=== PATIENT | female | born 1945 | race Caucasian/White ===

== ENCOUNTER 2016-12-19 10:13 | Outpatient (CLI) | payer OTHER ==
[2015-10-21 14:16] VITALS: BP 150/91
[~2016-12-19 10:13] MED LIST: BUPIVACAINE HCL/PF 2.5 MG/ML 10ML VIAL IV ONE; Lidocaine 1% 5ml(IM or SUTURE)(PAIN CLINIC) ONE; TRIAMCINOLONE ACETONID 40MG/ML VIAL ONE
--- NOTE | 2016-12-21 13:09 | GREATER THROCHANTERIC BURSA IN ---
SUBJECTIVE: I had the opportunity of following up with Lianna Alfredo today as an outpatient at [facility]. This is a patient I treated for left-sided trochanteric bursitis in September and she had profound immediate relief and is overall better. She says that the symptoms are now returning on the left and she has also noted right-sided symptoms primarily in her hips. She is interested in discussing treatment options for bursitis other than a steroid injection and I did discuss PRP therapy bilateral hip bursa today and she was very receptive to the idea of PRP therapy for her bursitis. For today, I am going to plan on repeating bilateral greater trochanteric injections under fluoroscopy. PROCEDURE: Bilateral greater trochanteric bursa injection with fluoroscopic guidance. DESCRIPTION OF PROCEDURE: The risks and benefits of the procedure were discussed with the patient, including the risk of infection, bleeding, nerve injury. Furthermore, I discussed the risk of steroid exposure causing hyperglycemia, hypertension, osteoporosis, or increased infectious risks. The patient understood the risks and agreed to proceed. Consent was obtained. The patient was placed in prone position on the fluoroscopy table and the skin overlying the left greater trochanter of the femur was cleaned with an alcohol swab. The trochanter was visualized under AP fluoroscopy. A 25 gauge 1.5 needle was inserted over the trochanter and advanced until contact with the trochanter. It was verified that there was no aspiration of fluid or blood. Triamcinolone acetate and 0.25% of bupivacaine mixed with 1% lidocaine was injected. The needle was removed. The exact same procedure was then repeated on the contralateral greater trochanteric bursa. The patient was monitored for 20 minutes following the procedure, during which time the patient experienced no adverse sequelae. The patient was discharged to home in good condition with a milk tanker driver driving the patient home. ASSESSMENT: Bilateral greater trochanteric bursitis. PLAN: Bilateral greater trochanteric bursa injection with fluoroscopic guidance. FOLLOW UP: Return to clinic if problems develop or worsen. MARIE
== END 2016-12-19 10:23 ==
LOC: OUT 10:13
PROVIDERS: ATTEND Anesthesiology Pain Medicine
DX: M70.71 Other bursitis of hip, right hip (principal); M70.72 Other bursitis of hip, left hip
CPT/HCPCS: J3301; J3490; 20610; 77002; 99214; G0463

== ENCOUNTER 2017-08-07 09:58 | Outpatient (CLI) | payer OTHER ==
[2015-10-21 14:16] VITALS: BP 150/91
--- NOTE | 2017-08-08 09:58 | GREATER THROCHANTERIC BURSA IN ---
SUBJECTIVE: I had the opportunity of following up with Lianna Alfredo today as an outpatient at [facility]. Lianna is a very pleasant 71-year-old white female with bilateral hip pain. I have treated her with trochanteric bursa injections on December 19, 2016, and I had given her 1 previous injection for trochanteric bursitis last year and she has done quite well. I did describe PRP injections for chronic recurrent bursitis. I am going to plan today to repeat the bilateral trochanteric bursa injections under fluoroscopy. PROCEDURE: Bilateral greater trochanteric bursa injection with fluoroscopy. DESCRIPTION OF PROCEDURE: The risks and benefits of the procedure were discussed with the patient, including the risk of infection, bleeding, nerve injury. Furthermore, I discussed the risk of steroid exposure causing hyperglycemia, hypertension, osteoporosis, or increased infectious risks. The patient understood the risks and agreed to proceed. Consent was obtained. The patient was placed in prone position on the fluoroscopy table and the skin overlying the left greater trochanter of the femur was cleaned with an alcohol swab. The trochanter was visualized under AP fluoroscopy. A 23-gauge, 3.5 needle was inserted over the trochanter and advanced until contact with the trochanter. It was verified that there was no aspiration of fluid or blood. The medications were injected. The needle was removed. This exact same procedure was then repeated on the right greater trochanteric bursa. The patient was monitored for 20 minutes following the procedure, during which time the patient experienced no adverse sequelae. The patient was discharged to home in good condition with a flag car driver driving the patient home. ASSESSMENT: Bilateral trochanteric bursitis. PLAN: Bilateral greater trochanteric bursa injection today with fluoroscopy. FOLLOW UP: Return to clinic if problems develop or worsen. cc: Dr. Rivera SALAZAR
== END 2017-08-07 10:00 ==
LOC: OUT 09:58
PROVIDERS: ATTEND Anesthesiology Pain Medicine
DX: M70.62 Trochanteric bursitis, left hip (principal); M70.61 Trochanteric bursitis, right hip
CPT/HCPCS: J3301; J3490; 20611; 99213; G0463

== ENCOUNTER 2017-10-14 14:47 | Emergency (ER) | payer OTHER ==
--- NOTE | 2017-10-14 15:57 | ED Physician Documentation ---
Fall - HISTORIAN Historian: patient, spouse - HPI Chief Complaint: Fall Additional Information: fell 09-27- then 3 times since- frequently involving pet dog. involves lt hip knee andklwrist w/large bruise spreading from hip distalward Where: home Context: tripped, slipped, lost balance r: moderate Associated Symptoms:: no loss of consciousness Location of Pain/Injury: denies: head, neck, face Injury to Right Extremity: denies: none Injury to Left Extremity: wrist, knee (pt is chronic pain pt takes hydrocodone) - ROS CONST: no problems NEURO: anxiety. denies: dizziness, depression MS/SKIN/LYMPH: denies: weakness, numbness, neck pain, back pain EYES/ENT: denies: none CVS/RESP: denies: none GI/: denies: problems urinating, nausea, vomiting - PAST HX Past History: other (depression anxiety gerd) Allergies/Adverse Reactions: Allergies Allergy/AdvReac Type Severity Reaction Status Date / Time lithium [[place]] Allergy Intermediate Hives Verified 10/14/17 16:28 amoxicillin trihydrate Allergy Verified 10/14/17 16:28 [From Augmentin] potassium clavulanate Allergy Verified 10/14/17 16:28 [From Augmentin] azithromycin [From Zithromax] AdvReac Nausea/Vomi Verified 10/14/17 16:28 ting Home Medications: Ambulatory Orders Medication Instructions Recorded Cholecalciferol (Vitamin D3) 2,000 unit PO DAILY av 03/23/16 [Vitamin D] - SOCIAL HX Smoking History: cigarettes Alcohol Use: rarely Drug Use: none - FAMILY HX Family History: no significant history - VITAL SIGNS Vital Signs: Vital Signs Temp Pulse Resp BP Pulse Ox 150/91 10/21/15 11:18 - REVIEWED ASSESSMENTS Nursing Assessment Reviewed: Yes Vitals Reviewed: Yes ED Results Lab/Radiology - Radiology Radiology Impressions: impacted fracture lt lwrist - knee hip appear ok - Orders Orders: ED Orders Category Date Time Status KNEE 3 VIEWS [RAD] Stat Exams 10/14/17 Ordered LT HIP 2VIEW COMPLETE [RAD] Stat Exams 10/14/17 Ordered WRIST 3 VIEWS OR MORE [RAD] Stat Exams 10/14/17 Ordered Fall Physical Exam - Physical Exam General Appearance: mild distress, moderate distress Head: non-tender, no swelling, no obvious injury Neck: non-tender, painless ROM Eye: KELSY, EOMI Resp/CVS: chest non-tender, no ecchymosis, breath sounds nml, no resp. distress , heart sounds nml Abdomen: soft, non-tender Neuro: oriented x3, sensation nml, motor nml, mood/affect nml. No: unsteady gait Skin: color nml, no rash, ecchymosis (lt hip area spreading down leg to knee-is not on blood thinners). No: cyanosis, diaphoresis, pallor Joint: No: nml ROM (limited knee and hip and wrist w/swelling-but can ambulate w /o asst) - [place] Coma Score Eyes Open: Spontaneous Speech: Oriented Motor: Obeys Commands Discharge Clincal Impression: fall w.impacted fracture lt wrist, multi abrasion contusion ligt sprain fr Referrals: Rivera Alfredo MD [Primary Care Provider] - 2 Days Comments: see ortho soon continue splint Condition: Good Disposition: 01 HOME, SELF-CARE Decision to Admit: NO Decision Time: 17:21
--- NOTE | 2017-10-14 17:35 | Diagnostic Imaging Report ---
JUWAN LEVI [facility] [address] [facility] [address] [address] Report Submission Date: Oct 14, 2017 4:48:13 PM MATERIAL MIXER Patient Study Name: JENSEN POTTER Date: Oct 14, 2017 4:12:02 PM MATERIAL MIXER Modality Type: CR Gender: F Description: LOWER EXTREMITY : 47 Institution: [facility] Physician: JUWAN LEVI Examination: Plain film knee History: Knee discomfort Findings: 3 views of the knee demonstrates osteopenia. No fracture. No dislocation. No joint effusion. Mild patellar spurring. No soft tissue irregularity. Impression: Osteopenia. No acute osseous abnormality. Electronically signed on Oct 14, 2017 4:48:13 PM MATERIAL MIXER by: Fredis SALAZAR
--- NOTE | 2017-10-14 17:36 | Diagnostic Imaging Report ---
JUWAN LEVI [facility] [address] [facility] [address] [address] Report Submission Date: Oct 14, 2017 4:37:12 PM TURF GROWER Patient Study Name: JENSEN POTTER Date: Oct 14, 2017 4:16:27 PM TURF GROWER Modality Type: CR Gender: F Description: PELVIS : 46 Institution: [facility] Physician: JUWAN LEVI Examination: Plain film hip History: Hip discomfort Comparison exams: None provided Findings: 3 views of the hip demonstrates prosthetic device in place. No fracture no dislocation. No soft tissue abnormality. Impression: Hip replacement in place without fracture or dislocation. Electronically signed on Oct 14, 2017 4:37:12 PM TURF GROWER by: Fredis SALAZAR
[2017-10-14 17:37] VITALS: BP 122/76
--- NOTE | 2017-10-14 17:37 | Diagnostic Imaging Report ---
JUWAN LEVI [facility] [address] [facility] [address] Report Submission Date: Oct 14, 2017 4:49:49 PM PUSH BENCH OPERATOR HELPER Patient Study Name: JENSEN POTTER Date: Oct 14, 2017 4:25:51 PM PUSH BENCH OPERATOR HELPER Modality Type: CR Gender: F Description: UPPER EXTREMITY : 46 Institution: [facility] Physician: JUWAN LEVI Examination: Plain film wrist History: Fall Comparison exams: None available Findings: 3 views the wrist demonstrates osteopenia. Articular degenerative changes. Fracture involving the distal radius. Avulsion of the ulna styloid. No gross soft tissue abnormalities. Impression: Distal radial fracture. Ulna styloid avulsion. Electronically signed on Oct 14, 2017 4:49:49 PM PUSH BENCH OPERATOR HELPER by: Fredis SALAZAR
== END 2017-10-14 17:30 | disposition home or self-care (01) ==
LOC: ED 14:47
DX: S62.102A Fracture of unspecified carpal bone, left wrist, initial encounter for closed fracture (principal); W19.XXXA Unspecified fall, initial encounter; Y93.9 Activity, unspecified; Y99.9 Unspecified external cause status
CPT/HCPCS: 73110; 73562; 99283

== ENCOUNTER 2017-12-25 16:13 | Outpatient (CLI) | payer OTHER ==
--- NOTE | 2017-12-25 17:50 | Diagnostic Imaging Report ---
[facility] [address] [facility].[address] [address] Report Submission Date: Dec 25, 2017 5:06:54 PM GUEST EXPERIENCE CAPTAIN Patient Study Name: JENSEN POTTER Date: Dec 25, 2017 4:26:16 PM GUEST EXPERIENCE CAPTAIN Modality Type: CR Gender: F Description: PELVIS : 46 Institution: [facility] Physician: NUNU POTTER Examination: Plain film hip History: Hip discomfort Comparison exams: None provided Findings: 2 views of the hip demonstrates a prosthetic device in place. No fracture no dislocation. No soft tissue abnormality. Impression: Prosthetic device. No acute appearing osseous abnormality. Electronically signed on Dec 25, 2017 5:06:54 PM GUEST EXPERIENCE CAPTAIN by: Fredis SALAZAR
== END 2017-12-25 16:14 ==
LOC: RAD 16:13
PROVIDERS: ATTEND Family Medicine
DX: M25.552 Pain in left hip (principal)

== ENCOUNTER 2018-02-23 07:09 | Emergency (ER) | payer OTHER ==
--- NOTE | 2018-02-23 08:38 | ED Physician Documentation ---
General Adult - HISTORIAN Historian: patient - HPI Stated Complaint: Pain to frontal hip (L) that started at 3am, Hx chronic lateral Lt hip pain Chief Complaint: General Adult Onset: hours Timing: still present Severity: moderate Further Comments: yes (Pt is a 72 yo female with pain in her L hip. Pt has had L hip replacement and has had chronic lateral hip pain, for which she sees Dr. Ignacio. Pain today started at 3:00 am.) - ROS CONST: no problems EYES/ENT: none CVS/RESP: none GI/: none MS/SKIN/LYMPH: other (L hip pain) - PAST HX Past History: other (HTN, GERD, Depression/Anxiety, Hearing loss, vision problems) Surgeries/Procedures: other (R shoulder replacement; L hip replacement) Allergies/Adverse Reactions: Allergies Allergy/AdvReac Type Severity Reaction Status Date / Time lithium [[place]] Allergy Intermediate Hives Verified 02/23/18 07:56 amoxicillin trihydrate Allergy Verified 02/23/18 07:56 [From Augmentin] potassium clavulanate Allergy Verified 02/23/18 07:56 [From Augmentin] azithromycin [From Zithromax] AdvReac Nausea/Vomi Verified 02/23/18 07:56 ting Home Medications: Ambulatory Orders Medication Instructions Recorded Cholecalciferol (Vitamin D3) 2,000 unit PO DAILY av 03/23/16 [Vitamin D] - SOCIAL HX Smoking History: cigarettes - FAMILY HX Family History: No - VITAL SIGNS Vital Signs: Vital Signs Temp Pulse Resp BP Pulse Ox 98.1 F 88 16 150/86 93 02/23/18 07:10 02/23/18 07:10 02/23/18 07:10 02/23/18 07:10 02/23/18 07:10 - REVIEWED ASSESSMENTS Nursing Assessment Reviewed: Yes Vitals Reviewed: Yes Progress - Progress Progress: X-ray L hip: Left hip replacement. Osteopenia and degenerative changes. No acute appearing osseous abnormality. ED Results Lab/Radiology - Orders Orders: ED Orders Category Date Time Status LT HIP 2VIEW COMPLETE [RAD] Stat Exams 02/23/18 Ordered General Adult Physical Exam - PHYSICAL EXAM GENERAL APPEARANCE: mild distress NECK: normal inspection, supple RESPIRATORY: no resp distress, chest non-tender, breath sounds normal CVS: reg rate & rhythm, heart sounds normal BACK: normal inspection SKIN: warm/dry, normal color EXTREMITIES: other (L hip tenderness; FROM) NEURO: oriented X3, motor nml Discharge Clincal Impression: Musculoskeletal pain Referrals: Rivera Alfredo MD [Primary Care Provider] - Condition: Good Disposition: 01 HOME, SELF-CARE Decision to Admit: NO Decision Time: 09:10
[2018-02-23 09:06] VITALS: BP 139/78
--- NOTE | 2018-02-23 09:14 | Diagnostic Imaging Report ---
[facility] [address] [facility].[address] [address] Report Submission Date: Feb 23, 2018 8:47:06 AM CDT Patient Study Name: JENSEN POTTER Date: Feb 23, 2018 8:17:07 AM CDT Modality Type: DX Gender: F Description: PELVIS : 47 Institution: [facility] Physician: OG STROUD Examination: Plain film pelvis/left hip History: PT STATE HIP PAIN FOR 3X DAYS, HX OF SURGERY (Hx) Comparison exams: None provided Findings: 3 views of the pelvis and left hip demonstrate left hip prosthesis in place. Generalized osteopenia. No fracture. No dislocation. Articular degenerative changes. No soft tissue abnormality. Impression: Left hip replacement. Osteopenia and degenerative changes. No acute appearing osseous abnormality. Electronically signed on Feb 23, 2018 8:47:06 AM CDT by: Fredis SALAZAR
== END 2018-02-23 09:04 | disposition home or self-care (01) ==
LOC: ED 07:09
DX: M79.1 Myalgia (principal)
CPT/HCPCS: 99283

== ENCOUNTER 2018-03-13 13:19 | Outpatient (CLI) | payer OTHER ==
--- NOTE | 2018-03-15 10:45 | PAIN CLINIC PROGRESS NOTES ---
REASON FOR VISIT: I had the opportunity of seeing Lianna Alfredo in follow up. This is a delightful 72-year-old white female who I have treated for bilateral greater trochanteric bursitis. She says that a couple of weeks ago she was having relatively severe pain in the area of the posterior sciatic notch on both sides when she walked. She said her walking was limited. Her ambulation could not be sustained and she had been trying to walk for exercise but that between the pain and the weather, she has been unable to do any sustained walking. She said that over the course of the last 2 weeks that the symptoms have for the most part resolved. She says at this point, she is having very little pain in the posterior gluteal fold, achiness of the legs, or weakness. I re-examined her today and the area of her chief complaint is at the bilateral sciatic notch. There is no evidence of radiculitis. Negative straight leg raise. Negative assisted extension and extension rotation findings. Some tenderness over the bilateral greater trochanteric bursa. ASSESSMENT: 1. Likely spinal stenosis. I have recommended doing an MRI study and possible caudal epidural. 2. History of greater trochanteric bursitis, now with some mild recurrence. PLAN: At this point, Ms. Alfredo is doing well and is relatively asymptomatic. I did not recommend any further interventional treatment today. She is in agreement but would like a follow up next month, as she thinks that her symptoms may well reoccur when she begins more active activity with the better weather. Thank you again for allowing me to take part in the care of this nice lady. I appreciate the opportunity to take part in the care of your patients. cc: Dr. Rivera SALAZAR
== END 2018-03-13 13:20 ==
LOC: OUT 13:19
PROVIDERS: ATTEND Anesthesiology Pain Medicine
DX: M70.60 Trochanteric bursitis, unspecified hip (principal)
CPT/HCPCS: 99214; G0463

== ENCOUNTER 2018-04-10 13:53 | Outpatient (CLI) | payer OTHER ==
[~2018-04-10 13:53] MED LIST changes: -Lidocaine 1% 5ml(IM or SUTURE)(PAIN CLINIC) ONE
--- NOTE | 2018-04-11 11:47 | GREATER THROCHANTERIC BURSA IN ---
SUBJECTIVE: Ms. Alfredo is a very nice 72-year-old white female who follows up with me today with left hip and lateral thigh pain consistent with trochanteric bursitis. I re-examined her and she has a negative straight leg raise but no evidence of radiculitis. Symptoms are primarily reproduced over the trochanteric bursa. Plan for a left trochanteric bursa injection under fluoroscopy today. PROCEDURE: Left greater trochanteric bursa injection with fluoroscopy. DESCRIPTION OF PROCEDURE: The risks and benefits of the procedure were discussed with the patient, including the risk of infection, bleeding, nerve injury. Furthermore, I discussed the risk of steroid exposure causing hyperglycemia, hypertension, osteoporosis, or increased infectious risks. The patient understood the risks and agreed to proceed. Consent was obtained. The patient was placed in prone position on the fluoroscopy table and the skin overlying the left greater trochanter of the femur was cleaned. The trochanter was visualized under AP fluoroscopy. A needle was inserted over the trochanter and advanced until contact with the trochanter. It was verified that there was no aspiration of fluid or blood. The medication was injected. The needle was removed. The patient was monitored for 20 minutes following the procedure, during which time the patient experienced no adverse sequelae. The patient was discharged to home in good condition with a semi driver driving the patient home. ASSESSMENT: Trochanteric bursitis of the hip. PLAN: Left greater trochanteric bursa injection today. FOLLOW UP: Return to clinic if problems develop or worsen. cc: Dr. Rivera SALAZAR
== END 2018-04-10 13:54 ==
LOC: OUT 13:53
PROVIDERS: ATTEND Anesthesiology Pain Medicine
DX: M70.62 Trochanteric bursitis, left hip (principal); M70.61 Trochanteric bursitis, right hip
CPT/HCPCS: 99213; G0463; J3301; J3490

== ENCOUNTER 2018-07-17 12:56 | Outpatient (CLI) | payer OTHER ==
[~2018-07-17 12:56] MED LIST changes: +Lidocaine 1% 5ml(IM or SUTURE)(PAIN CLINIC) ONE
--- NOTE | 2018-07-22 16:17 | GREATER THROCHANTERIC BURSA IN ---
SUBJECTIVE: Lianna follows up with me today with bilateral hip pain. She has multiple complaints primarily polyarthropathy related. She says the worst complaint is her hips, right somewhat worse than the left. She says the best she has ever done is following bilateral trochanteric bursa injections and she follows up with bilateral trochanteric bursitis today. She has questions regarding activity. She also has complaints of heel pain and has a presumptive diagnosis of plantar fasciitis. She has orthotics in her shoes at this point. PHYSICAL EXAMINATION: General: The patient is well nourished, well developed, and in no apparent distress. Awake, alert, and oriented. HEENT: Pupils are equal, round, and reactive to light and accommodation. Extraocular movements intact. No facial droop. Neck: There is full range of motion of the cervical spine. No evidence of adenopathy. Thyroid is nontender, not enlarged. Carotids are without bruits. Chest: Clear to auscultation bilaterally. Normal chest excursion. Heart: Regular rate and rhythm without murmur. Abdomen: Benign. Normoactive bowel sounds. Motor/sensory: Intact in the upper and lower extremities. Moves all extremities freely. Extremities: Positive Tinel's sign at bilateral trochanteric bursa. PROCEDURE: Bilateral greater trochanteric bursa injection with fluoroscopy. DESCRIPTION OF PROCEDURE: The risks and benefits of the procedure were discussed with the patient, including the risk of infection, bleeding, nerve injury. Furthermore, I discussed the risk of steroid exposure causing hyperglycemia, hypertension, osteoporosis, or increased infectious risks. The patient understood the risks and agreed to proceed. Consent was obtained. The patient was placed in prone position on the fluoroscopy table and the skin overlying the left greater trochanter of the femur was cleaned with an alcohol swab. The trochanter was visualized under AP fluoroscopy. A needle was inserted over the trochanter and advanced until contact with the trochanter. It was verified that there was no aspiration of fluid or blood. The medication was injected. The needle was removed. This exact same procedure was repeated on the contralateral greater trochanteric bursa. The patient was monitored for 20 minutes following the procedure, during which time the patient experienced no adverse sequelae. The patient was discharged to home in good condition with a local company hazmat driver driving the patient home. ASSESSMENT: Bilateral greater trochanteric bursitis. PLAN: Bilateral greater trochanteric bursa injection today under fluoroscopy. FOLLOW UP: Return to clinic if problems develop or worsen. cc: Dr. Rivera SALAZAR
== END 2018-07-17 12:58 ==
LOC: OUT 12:56
PROVIDERS: ATTEND Anesthesiology Pain Medicine
DX: M70.62 Trochanteric bursitis, left hip (principal); M70.61 Trochanteric bursitis, right hip
CPT/HCPCS: 20611; 99213; G0463; J3301; J3490; Q9966

== ENCOUNTER 2018-10-01 13:03 | Outpatient (CLI) | payer OTHER ==
--- NOTE | 2018-10-02 12:49 | OP Clinic Progress Note ---
SUBJECTIVE: Lianna Alfredo is a 72-year-old female who presented today for follow up of bilateral heel pain and bilateral metatarsal head pain. The patient was sent after her last visit for an orthopedic consult for an opinion on if there were other issues more proximal in the kinetic chain. It appears that the patient was diagnosed with plantar fasciitis by the orthopedic doctor as well, as well as, mery and was given padding and stretching exercises to do. The patient states that she has been doing stretching exercises and her has been helping with those and massaging her feet and she was coming in today to have an injection performed to her heel but she made this appointment about 4 weeks ago and the pain is much improved at this time. She does not wish to have an injection at this time and feels that overall she is improving greatly. She leaves town in the next 10 days, I believe. She does not admit to any fevers, chills, nausea, vomiting, shortness of breath, or chest pain at this time. Notable history includes chronic low back pain and GERD. OBJECTIVE: Vital Signs: Pulse oximetry was 91%, BP: 122/65, heart rate 81, R: 18. Dermatologic exam: There are no open lesions, no hyperkeratosis noted, and no significant varicosities noted on bilateral feet. VASCULAR: There are 2+ DP and PT pulses bilaterally. Capillary refill time is less than 3 seconds to the toes bilaterally. No edema bilaterally. MUSCULOSKELETAL: No pain on palpation noted to the metatarsal heads bilaterally. There is mild pain on palpation noted to the plantar medial heel bilaterally. There is about 5 degrees of dorsiflexion range of motion in the ankle with the knees extended bilaterally. I believe this is improved from last time. There are no other gross abnormalities noted outside of some hammertoes and minor hallux valgus bilaterally. NEUROLOGIC: Light touch sensation is intact to the toes bilaterally. ASSESSMENT: 1. Plantar fasciitis, bilateral. 2. Metatarsalgia of bilateral feet. PLAN: The patient seems to be improving greatly with stretching exercises, etc. given by myself, as well as by Dr. Alexandre, the orthopedic doctor from [place] whom the patient was referred to. The patient refuses any sort of shot today and believes she is improving greatly at this time. She will return to the clinic as needed if she continues to have pain or stops improving or worsens in any way in her feet. The patient is happy with this plan and denies any other questions or concerns at this time. cc: Dr. Rivera SALAZAR
== END 2018-10-01 13:05 ==
LOC: POD 13:03
PROVIDERS: ATTEND Podiatrist Foot & Ankle Surgery
DX: M72.2 Plantar fascial fibromatosis (principal); M77.41 Metatarsalgia, right foot; M77.42 Metatarsalgia, left foot
CPT/HCPCS: 99212

== ENCOUNTER 2018-11-13 12:56 | Outpatient (CLI) | payer OTHER ==
[~2018-11-13 12:56] MED LIST changes: +BUPIVACAINE HCL 0.25% (2.5MG/ML) PF 10ML VIAL IV ONE; -BUPIVACAINE HCL/PF 2.5 MG/ML 10ML VIAL IV ONE; +LIDOCAINE HCL 2% MDV 400MG/20ML VIAL ONE; -Lidocaine 1% 5ml(IM or SUTURE)(PAIN CLINIC) ONE
--- NOTE | 2018-11-23 09:23 | GREATER THROCHANTERIC BURSA IN ---
SUBJECTIVE: Ms. Alfredo follows up with me today with a history of recurrent left hip pain. She says she has been doing some exercises for plantar fasciitis and has suffered recurrent pain over the left trochanteric bursa. She has had good success with a previous trochanteric bursa injection, and I am going to plan on repeating it on the left side today. PROCEDURE: Left greater trochanteric bursa injection with fluoroscopy. DESCRIPTION OF PROCEDURE: The risks and benefits of the procedure were discussed with the patient, including the risk of infection, bleeding, nerve injury. Furthermore, I discussed the risk of steroid exposure causing hyperglycemia, hypertension, osteoporosis, or increased infectious risks. The patient understood the risks and agreed to proceed. Consent was obtained. The patient was placed in prone position on the fluoroscopy table and the skin overlying the left greater trochanter of the femur was cleaned. The trochanter was visualized under AP fluoroscopy. A needle was inserted over the trochanter and advanced until contact with the trochanter. It was verified that there was no aspiration of fluid or blood. At this point, Omnipaque 240 myelogram dye was injected. It was verified with fluoroscopic views that the dye was located in the desired distribution. The medication was injected. The needle was removed. The patient was monitored for 20 minutes following the procedure, during which time the patient experienced no adverse sequelae. The patient was discharged to home in good condition with a local intermodal truck driver driving the pt. home. ASSESSMENT: Left greater trochanteric bursitis. PLAN: Left greater trochanteric bursa injection today. FOLLOW UP: Return to clinic if problems develop or worsen. cc: Dr. Rivera SALAZAR
== END 2018-11-13 14:00 ==
LOC: OUT 12:56
PROVIDERS: ATTEND Anesthesiology Pain Medicine
DX: M70.62 Trochanteric bursitis, left hip (principal)
CPT/HCPCS: 20610; 77002; J3301; J3490; Q9966

== ENCOUNTER 2018-12-14 15:02 | Emergency (ER) | payer OTHER | END 2018-12-14 16:10 | disposition home or self-care (01) | LOC: ED 15:02 | DX: S70.01XA Contusion of right hip, initial encounter (principal); W19.XXXA Unspecified fall, initial encounter; Y93.9 Activity, unspecified; Y92.9 Unspecified place or not applicable | CPT/HCPCS: 99281 ==

== ENCOUNTER 2018-12-20 16:06 | Outpatient (CLI) | payer OTHER ==
--- NOTE | 2018-12-20 20:59 | Diagnostic Imaging Report ---
NUNU POTTER [facility] [address] [facility] [address] [id number] Report Submission Date: Dec 20, 2018 5:29:12 PM COLD TYPE COMPOSING MACHINE OPERATOR Patient Study Name: JENSEN POTTER Date: Dec 20, 2018 4:05:39 PM COLD TYPE COMPOSING MACHINE OPERATOR Modality Type: DX Gender: F Description: PELVIS : 47 Institution: [facility] Physician: NUNU POTTER Right hip 2 views Clinical history pain Technique AP frog leg. Findings: This appeared joint space narrowing. No fracture dislocation is identified. Bone density is within normal limits. The right pubic rami are intact Impression: Degenerative arthritis otherwise negative Electronically signed on Dec 20, 2018 5:29:12 PM COLD TYPE COMPOSING MACHINE OPERATOR by: Jhony SALAZAR
== END 2018-12-20 16:08 ==
LOC: RAD 16:06
PROVIDERS: ATTEND Family Medicine
DX: M16.11 Unilateral primary osteoarthritis, right hip (principal)
CPT/HCPCS: 73502

== ENCOUNTER 2019-01-20 19:53 | Observation (INO) | payer OTHER ==
--- NOTE | 2019-01-20 20:31 | ED Physician Documentation ---
Fall - HISTORIAN Historian: patient, spouse - HPI Stated Complaint: fall Chief Complaint: Fall Additional Information: Patient presents to ED via EMS after falling tonight. Patient states she fell backward falling on her buttocks and hitting the back of her head while trying to stand from her wheel chair to a walker. Patient states she did not lose consciousness. This is her third fall in the past 2 months. She has a skin tear on her left elbow. reports difficulty taking care of her at home. Onset: just prior to arrival Where: home Context: lost balance r: mild Associated Symptoms:: no loss of consciousness Location of Pain/Injury: head, other (tailbone) Injury to Right Extremity: none Injury to Left Extremity: elbow (skin tear) - ROS CONST: denies: fever NEURO: denies: dizziness MS/SKIN/LYMPH: weakness EYES/ENT: none CVS/RESP: none GI/: denies: nausea, vomiting - PAST HX Past History: none Allergies/Adverse Reactions: Allergies Allergy/AdvReac Type Severity Reaction Status Date / Time lithium [[place]] Allergy Intermediate Hives Verified 02/23/18 07:56 acetaminophen Allergy Unknown Unverified 01/02/13 13:18 bupropion HCl Allergy Unknown Unverified 01/02/13 13:17 hydrocodone bitartrate Allergy Unknown Unverified 01/02/13 13:18 iodine Allergy Unknown Unverified 01/02/13 13:18 amoxicillin trihydrate Allergy Verified 02/23/18 07:56 [From Augmentin] potassium clavulanate Allergy Verified 02/23/18 07:56 [From Augmentin] azithromycin [From Zithromax] AdvReac Nausea/Vomi Verified 02/23/18 07:56 ting Home Medications: Ambulatory Orders Medication Instructions Recorded Cholecalciferol (Vitamin D3) 2,000 unit PO DAILY av 03/23/16 [Vitamin D] Bupropion HCl 75 mg PO [id number] 01/20/19 Clorazepate Dipotassium [Tranxene 15 mg PO TID 01/20/19 T-Tab] - SOCIAL HX Smoking History: non-smoker Alcohol Use: none Drug Use: none - FAMILY HX Family History: none - VITAL SIGNS Vital Signs: Vital Signs Temp Pulse Resp BP Pulse Ox 139/78 02/23/18 09:04 - REVIEWED ASSESSMENTS Nursing Assessment Reviewed: Yes Vitals Reviewed: Yes ED Results Lab/Radiology - Radiology Radiology Impressions: Report Submission Date: Jan 20, 2019 8:33:38 PM ASSISTANT Patient Study Name: JENSEN POTTER Date: Jan 20, 2019 8:04:56 PM ASSISTANT Modality Type: DX Gender: F Description: PELVIS AP 1 OR 2 VIEWS : 47 Institution: [facility] Physician: PERLITA MACHADO Single view pelvis Clinical history: Trauma Findings/impression: The left hip replacement is in good position. The right hip joint is maintained. There is likely nondisplaced right medial pubic rami/pubic symphysis fracture. Electronically signed on Jan 20, 2019 8:33:38 PM [facility] by: Otis Thacker Report Submission Date: Jan 20, 2019 8:36:58 PM ASSISTANT Patient Study Name: JENSEN POTTER Date: Jan 20, 2019 8:10:43 PM ASSISTANT Modality Type: CT\SR Gender: F Description: CT BRAIN W/O CONTRAST : 47 Institution: [facility] Physician: PERLITA MACHADO CT brain noncontrast CLINICAL HISTORY: FALL, HIT HEAD, NO LOSS OF CONSCIOUSNESS (Hx) / ITS.REASON fall Note time : 01/20/2019 9:26:09 PM User : Amanuel Flynn FALL (DICOM Hx) TECHNIQUE: 5 mm contiguous axial images of the brain, noncontrast. FINDINGS: There is no evidence of intracranial mass effect, hemorrhage, or acute hydrocephalus. The lateral ventricles are symmetrical and the 4th ventricle is midline without shift. No acute brain parenchymal changes or extra-axial fluid collections are identified. The posterior fossa contents are within normal l imits. The calvarium is intact. The visualized sinuses and mastoid air cells are clear. IMPRESSION: No acute intracranial process. Electronically signed on Jan 20, 2019 8:36:58 PM ASSISTANT by: Otis Thacker - Orders Orders: ED Orders Category Date Time Status CT BRAIN W/O CONTRAST Stat Exams 01/20/19 Ordered PELVIS AP 1 OR 2 VIEWS [RAD] Stat Exams 01/20/19 Ordered Fall Physical Exam - Physical Exam General Appearance: no acute distress, alert Head: non-tender Neck: painless ROM Eye: KELSY ENT: nml external inspection Resp/CVS: chest non-tender, breath sounds nml Abdomen: soft, normal bowel sounds Neuro: oriented x3, motor nml, mood/affect nml Skin: color nml Back: normal inspection, no CVA tenderness Extremities: atraumatic, pelvis stable, hips non-tender, other (+1 lower extremity edema to knee bilaterally) Joint: nml ROM - [place] Coma Score Eyes Open: Spontaneous Speech: Oriented Motor: Obeys Commands Discharge Clincal Impression: Intractable pain, Difficulty with activities of daily living Fracture of right superior pubic ramus Qualifiers: Encounter type: initial encounter Fracture type: closed Qualified Code(s): S32.511A - Fracture of superior rim of right pubis, initial encounter for closed fracture Condition: Stable Disposition: 09 ADMITTED INPATIENT Decision to Admit: [id number] Date of Decison to Admit: 01/20/19 Decision Time: 23:02
[2019-01-20] MEDS ORDERED: RED CRASH CART TAGS 1 EACH MC ONE (21:59)
[2019-01-20 22:00] VITALS: BMI 26.4
[2019-01-20] MEDS ORDERED: BISACODYL 5 MG TABLET.DR PO PRN (22:42)
[2019-01-20] MEDS ORDERED: ONDANSETRON HCL 4 MG TAB.RAPDIS PO PRN (22:42)
[2019-01-20] MEDS ORDERED: MAG HYDROX/ALUMINUM HYD/SIMETH 30 ML UDC PO PRN (22:42)
[2019-01-20] MEDS ORDERED: HYDROcodone /APAP 5/325 1 EACH TABLET PO PRN (22:42)
[2019-01-20] MEDS ORDERED: HYDROcodone /APAP 5/325 1 EACH TABLET ONE (23:12)
[2019-01-20] MEDS: HEPARIN SODIUM 5000 UNIT/1 ML SQ SCH (23:16)
[2019-01-21] MEDS: oxyCODONE/ACETAMINOPHEN 5/325 TABLET PO PRN ×4 (00:34→13:11)
[2019-01-21] MEDS: HEPARIN SODIUM 5000 UNIT/1 ML SQ SCH ×2 (06:00→12:31)
--- NOTE | 2019-01-21 06:03 | Diagnostic Imaging Report ---
PERLITA MACHADO [facility] [address] [facility] [address] [place] [address]. [id number] Report Submission Date: Jan 20, 2019 8:33:38 PM QUALITY REVIEW TRAINER Patient Study Name: JENSEN POTTER Date: Jan 20, 2019 8:04:56 PM QUALITY REVIEW TRAINER Modality Type: DX Gender: F Description: PELVIS AP 1 OR 2 VIEWS : 47 Institution: [facility] Physician: PERLITA MACHADO Single view pelvis Clinical history: Trauma Findings/impression: The left hip replacement is in good position. The right hip joint is maintained. There is likely nondisplaced right medial pubic rami/pubic symphysis fracture. Electronically signed on Jan 20, 2019 8:33:38 PM QUALITY REVIEW TRAINER by: Otis SALAZAR
--- NOTE | 2019-01-21 06:04 | Diagnostic Imaging Report ---
PERLITA MACHADO [facility] [address] [facility] [address] [place] [address]. [id number] Report Submission Date: Jan 20, 2019 8:36:58 PM PLAYGROUND MONITOR Patient Study Name: JENSEN POTTER Date: Jan 20, 2019 8:10:43 PM PLAYGROUND MONITOR Modality Type: CT\SR Gender: F Description: CT BRAIN W/O CONTRAST : 47 Institution: [facility] Physician: PERLITA MACHADO CT brain noncontrast CLINICAL HISTORY: FALL, HIT HEAD, NO LOSS OF CONSCIOUSNESS (Hx) / ITS.REASON fall Note time : 01/20/2019 9:26:09 PM User : Amanuel Flynn FALL (DICOM Hx) TECHNIQUE: 5 mm contiguous axial images of the brain, noncontrast. FINDINGS: There is no evidence of intracranial mass effect, hemorrhage, or acute hydrocephalus. The lateral ventricles are symmetrical and the 4th ventricle is midline without shift. No acute brain parenchymal changes or extra-axial fluid collections are identified. The posterior fossa contents are within normal limits. The calvarium is intact. The visualized sinuses and mastoid air cells are clear. IMPRESSION: No acute intracranial process. Electronically signed on Jan 20, 2019 8:36:58 PM PLAYGROUND MONITOR by: Otis SALAZAR
[2019-01-21 07:34] LABS: eGFR (Non-African) > 60
[2019-01-21] MEDS ORDERED: PANTOPRAZOLE SODIUM 40 MG TABLET.DR ONE (07:41)
[2019-01-21 08:02] LABS: EOSINOPHILS % 2.4 % (0.0-6.8); MEAN CORPUSCULAR HEMOGLOBIN 24.3 pg (28.0-34.0); MONOCYTES % 4.8 % (0.0-11.0)
[2019-01-21 08:03] LABS: BASOPHILS % 1.8 (0.0-1.5); NEUTROPHILS # 7.1 # k/uL (1.4-7.7)
[2019-01-21] MEDS ORDERED: DULoxetine HCL 30 MG CAPSULE.DR PO SCH (09:00)
[2019-01-21] MEDS ORDERED: buPROPion 150 MG TAB.ER.12H PO SCH ×2 (09:00→12:00)
[2019-01-21] MEDS ORDERED: HYDROCHLOROTHIAZIDE 25 MG TABLET PO SCH (09:00)
[2019-01-21] MEDS ORDERED: DOCUSATE SODIUM 100 MG CAPSULE PO SCH (09:00)
[2019-01-21] MEDS ORDERED: PATIENT OWN MED 1 EACH EACH PO SCH (09:00)
[2019-01-21 09:06] LABS: APPEARANCE,URINE CLEAR (CLEAR); COLOR,URINE YELLOW (YELLOW); OCCULT BLOOD,URINE TRACE-INTACT (NEGATIVE); UROBILINOGEN URINE 0.2 Eu (0.2-1.0)
--- NOTE | 2019-01-21 11:03 | Diagnostic Imaging Report ---
NUNU POTTRE [facility] [address] [facility] [address] [place] [address]. [id number] Report Submission Date: Jan 21, 2019 10:44:41 AM WAXER Patient Study Name: JENSEN POTTER Date: Jan 21, 2019 9:59:08 AM WAXER Modality Type: CT Gender: F Description: CT PELVIS W/O CONTRAST : 47 Institution: [facility] Physician: NUNU POTTER Examination: CT pelvis. History: FALL LAST NIGHT, ABNORMAL XRAY RESULTS. TAILBONE PAIN. PREVIOUS LEFT HIP REPLACEMENT. Comparison exams: Plain film dated 20 January 2019 Technique: Axial imaging was sagittal and coronal reconstruction. Findings: Artifact from left hip replacement. Complex fractures involving the superior/inferior pubic rami near the pubic symphysis. Fracture involving the medial margin of the superior pubic rami. Fracture mid aspect right inferior pubic rami. Left superior and inferior pubic rami appear to be intact. Margins of the right femoral head, neck, intertrochanteric region shaft are within normal limits. Margins of the acetabulum and iliac wings appear to be intact. Lumbar spine degenerative changes. Congenital angulation of the sacrococcygeal region. Visualized intra-pelvic structures without gross abnormality. No evidence for soft tissue fluid collection/hematoma. Impression: Fractures involving the right superior/inferior pubic rami as described. Electronically signed on Jan 21, 2019 10:44:41 AM WAXER by: Fredis SALAZAR
--- NOTE | 2019-01-21 13:02 | Diagnostic Imaging Report ---
NUNU POTTER [facility] [address] [facility] [address] Report Submission Date: Jan 21, 2019 12:51:00 PM ECHOCARDIOGRAPHY TECHNOLOGIST Patient Study Name: JENSEN POTTER Date: Jan 21, 2019 10:08:42 AM ECHOCARDIOGRAPHY TECHNOLOGIST Modality Type: US Gender: F Description: US EXTREMITY VEINS UNILAT : 47 Institution: [facility] Physician: NUNU POTTER Examination: Ultrasound left vein History: POSSIBLE HIP FRACTURE LT LEG SWELLING Findings: Sonographic evaluation of the left lower extremity venous system from the groin to the popliteal fossa inclusive. Normal compressibility. No luminal filling defect. Normal waveforms and response to augmentation. No popliteal region fluid collection. Impression: No evidence for deep venous thrombosis. Electronically signed on Jan 21, 2019 12:51:00 PM ECHOCARDIOGRAPHY TECHNOLOGIST by: Fredis SALAZAR
--- NOTE | 2019-01-21 17:33 | Discharge Summary ---
Discharge Summary - Discharge Sumary History of Present Illness: ankush presents to ED via EMS after falling . Patient states she fell backward falling on her buttocks and hitting the back of her head while trying to stand from her wheel chair to a walker. Patient states she did not lose consciousness. This is her third fall in the past 2 months. She has a skin tear on her left elbow. reports difficulty taking care of her at home. Onset: just prior to arrival. Patient was found to have a nondisplaced right medial pubic rami/pubic synthesis fracture. Patient was having pain with weight- bearing. Patient was subsequently put in to the hospital on observation for pain control. Condition at Discharge: Stable Home Medications: Ambulatory Orders Medication Instructions Recorded Cholecalciferol (Vitamin D3) 2,000 unit PO DAILY av 03/23/16 [Vitamin D3] Bupropion HCl 75 mg PO [id number] 01/20/19 Clorazepate Dipotassium 15 mg PO BID 01/21/19 Duloxetine HCl [Cymbalta] 60 mg PO D #180 tablet 01/21/19 Hydrochlorothiazide 37.5 mg PO DAILY #90 tb 01/21/19 Consultations this Visit: None Procedures this Visit: Other (CT scan pelvic; US bilat lower extremities) Allergies/Adverse Reactions: Allergies Allergy/AdvReac Type Severity Reaction Status Date / Time lithium [[place]] Allergy Intermediate Hives Verified 02/23/18 07:56 iodine Allergy Unknown Unverified 01/02/13 13:18 amoxicillin trihydrate Allergy Verified 02/23/18 07:56 [From Augmentin] azithromycin [From Zithromax] AdvReac Nausea/Vomi Verified 02/23/18 07:56 ting Discharge Summary: Patient was continued on her home oxycodone/acetaminophen 5/325. Patient seemed to do fairly well with this although was taking it more frequently and she was normally at home. Patient was continued on her of the medication. Patient was able to have a bowel movement during her hospitalization. Physical therapy with consulted and was felt that the patient was going to be able to adequately return home with outpatient physical therapy. Patient did not develop any ileus. Patient other chronic medical problems remain stable during her hospitalization.Patient was subsequently discharged home in stable condition. Admission Date: 20 JAN 2019 Observation Care Discharge Date: 21 JAN 2019 Dsiposition: Home - Final Diagnosis (1) Fracture of pubic ramus Problems: symptomatic care,Patient will be continued on oxycodone/acetaminophen 1Q6 hours PRN for pain. Patient will be referred to physical therapy to help with her ambulation and fall prevention. (2) Depression Problems: Stable at this time continue present home medications. (3) Generalized osteoarthritis Problems: Stable at this time continue present home medications. (4) GERD without esophagitis Problems: Stable at this time continue present home medications. (5) Gait disturbance Problems: Patient will be started on physical therapy
[2019-01-21 18:19] VITALS: BP 152/86
[2019-01-22] MEDS ORDERED: PANTOPRAZOLE SODIUM 40 MG TABLET.DR PO SCH (07:00)
[2019-01-22] MEDS ORDERED: PATIENT OWN MED 1 EACH EACH OP SCH (07:00)
== END 2019-01-21 17:55 | disposition home or self-care (01) ==
LOC: ED 19:53 → SOUTH 21:13
PROVIDERS: ADMIT Family Medicine; ATTEND Family Medicine
DX: S32.511A Fracture of superior rim of right pubis, initial encounter for closed fracture (principal); F32.9 Major depressive disorder, single episode, unspecified; M15.9 Polyosteoarthritis, unspecified; M79.89 Other specified soft tissue disorders; W01.0XXA Fall on same level from slipping, tripping and stumbling without subsequent striking against object, initial encounter; Y93.89 Activity, other specified; Y92.89 Other specified places as the place of occurrence of the external cause; Z96.642 Presence of left artificial hip joint
CPT/HCPCS: 70450; 72170; 72192; 80048; 81002; 85025; 93970; 99217; 99283; 99284; J1644; A9270-GY; G0378

== ENCOUNTER 2019-05-21 14:38 | Outpatient (CLI) | payer OTHER ==
[2019-05-21 16:13] LABS: eGFR (Non-African) > 60
== END 2019-05-21 14:40 ==
LOC: LAB 14:38
PROVIDERS: ATTEND Clinical Nurse Specialist Medical-Surgical
DX: M81.0 Age-related osteoporosis without current pathological fracture (principal); Z87.310 Personal history of (healed) osteoporosis fracture
CPT/HCPCS: 36415; 80053; 82306

== ENCOUNTER 2019-09-03 14:45 | Outpatient (CLI) | payer OTHER | END 2019-09-03 14:55 | LOC: LAB 14:45 | PROVIDERS: ATTEND Clinical Nurse Specialist Medical-Surgical | DX: M81.0 Age-related osteoporosis without current pathological fracture (principal); E55.9 Vitamin D deficiency, unspecified; F17.200 Nicotine dependence, unspecified, uncomplicated; Z87.310 Personal history of (healed) osteoporosis fracture | CPT/HCPCS: 36415; 82306; 82310 ==

== ENCOUNTER 2019-10-14 13:02 | Outpatient (CLI) | payer OTHER | END 2019-10-14 13:07 | LOC: LAB 13:02 | PROVIDERS: ATTEND Clinical Nurse Specialist Medical-Surgical | DX: E55.9 Vitamin D deficiency, unspecified (principal); M81.0 Age-related osteoporosis without current pathological fracture; F17.200 Nicotine dependence, unspecified, uncomplicated; Z87.310 Personal history of (healed) osteoporosis fracture | CPT/HCPCS: 36415; 82310 ==